=== PATIENT | male | born 1980 | race Two or more races ===

== ENCOUNTER 2023-12-31 16:48 | Emergency (ER) | payer SELFPAY ==
[~2023-12-31] VITALS: Ht 160 cm; Wt 80.2 kg
[2023-12-31 17:23] LABS: Urine Bacteria None Seen /hpf (None Seen)
[2023-12-31 17:34] LABS: Urine Blood Negative /uL (Negative); Urine Clarity Clear (Clear); Urine Color Light-Yellow (Yellow); Urine Protein, UAD Negative (Negative); Urine Specific Gravity 1.023 (1.001-1.035); Urine Urobilinogen Normal (Negative); Urine WBC <1 /hpf (0 - 3)
[2023-12-31] MEDS ORDERED: NAP500T PO (18:48)
[2023-12-31 19:02] VITALS: BP 109/74; PULSE 63; RESP 20; TEMP 98.5; O2SAT 98
[2023-12-31] MEDS: KETOROLAC TROMETH 60MG/2ML VIAL IM ONE (19:11)
== END 2023-12-31 19:06 | disposition home or self-care (01) ==
LOC: ER 16:48
DX: I86.1 Scrotal varices (principal)
CPT/HCPCS: 76870; 81001; 96372; 99285; J1885